=== PATIENT | male | born 1960 | race Caucasian/White ===

== ENCOUNTER 2018-07-11 10:27 | Inpatient (IN) | payer OTHER, BC ==
[~2018-07-11] VITALS: Ht 157.5 cm; Wt 100.7 kg
--- NOTE | 2018-07-11 10:27 | NUR ---
PATIENT BIBA TO BED 10.
[2018-07-11 10:30] VITALS: BP 129/73
--- NOTE | 2018-07-11 10:40 | NUR ---
Patient being evaluated by physician at bedside.
--- NOTE | 2018-07-11 11:01 | NUR ---
PATIENT BIBA WITH C/O DIZZINESS AND WEAKNESS AT [facility]IALYSIS CENTER, BRADYCARDIAC ON SCENE HR 30-40, PT IS AAOX4, DENIES ANY CP OR SOB, DENIES N/V/D. SKIN IS WARM AND DRY TO TOUCH, BLE EDEMA AND VENOUS ULCER NOTED, DENIES PAIN, BP WNL. NO FEVER, PT DID NOT RECEIVED DIALYSIS TODAY. HX OF STEMI, RENAL FAILURE (M. W.F), DM, STROKE. PATIENT POSITIONED FOR COMFORT; HOB ELEVATED; BEDRAILS UP X2; BED DOWN. ER MD MADE AWARE OF PT STATUS.
[2018-07-11 11:08] LABS: BASOPHILS # (AUTO) 0.1 K/uL (0.00-0.22); BASOPHILS % (AUTO) 1.2 % (0.0-2.0); EOSINOPHILS # (AUTO) 0.1 K/uL (0-0.4); EOSINOPHILS % (AUTO) 1.6 % (0.0-4.0); HEMATOCRIT 33.7 % (36-52); HEMOGLOBIN 10.7 g/dL (12.0-18.0); LYMPHOCYTES # (AUTO) 1.3 K/uL (2.0-11.5); LYMPHOCYTES % (AUTO) 18.6 % (20.5-51.1); MEAN CORPUSCULAR HEMOGLOBIN 31 pg (27-31); MEAN CORPUSCULAR HGB CONC 32 g/dL (33-37); MEAN CORPUSCULAR VOLUME 99.4 fL (80-94); MONOCYTES # (AUTO) 0.5 K/uL (0.8-1.0); MONOCYTES % (AUTO) 6.7 % (1.7-9.3); NEUTROPHILS # (AUTO) 5.2 K/uL (1.8-7.7); NEUTROPHILS % (AUTO) 71.9 % (42.2-75.2); PLATELET COUNT (AUTO) 201 K/uL (140-450); RED BLOOD CELL COUNT(AUTO) 3.39 MIL/uL (4.20-6.10); RED CELL DISTRIBUTION WIDTH 17.1 % (11.6-13.7); WHITE BLOOD COUNT (AUTO) 7.2 K/uL (4.8-10.8)
[2018-07-11 11:20] LABS: PROTHROMBIN TIME 10.2 secs (10.8-13.4)
[2018-07-11 11:22] LABS: ALBUMIN 3.7 g/dL (3.4-5.0); ANION GAP 17.1 (8-16); CARBON DIOXIDE 29.1 mmol/L (21-32); TOTAL BILIRUBIN 0.5 mg/dL (0.0-1.0)
[2018-07-11 11:23] LABS: POTASSIUM 6.2 mmol/L (3.5-5.1)
[2018-07-11 11:24] LABS: CREATININE 10.8 mg/dL (0.7-1.3)
--- NOTE | 2018-07-11 11:40 | NUR ---
CRITICAL LAB RESULT OBTAINED, DR. RUFFIN MADE AWARE.
--- NOTE | 2018-07-11 12:15 | NUR ---
Allegra jules in ED - 07/11/18 at [address] FAY PERFORMED I AND D AT BEDSIDE, PT TOLERTAED WELL.
[2018-07-11] MEDS ORDERED: HYDR100T79 PO (12:20)
[2018-07-11] MEDS ORDERED: DILT120C17 PO (12:20)
[2018-07-11] MEDS ORDERED: [UNRECOGNIZED DRUG - CODE] OP (12:20)
[2018-07-11] MEDS ORDERED: NACL 0.9% 3,000 ML IV ONE (12:20)
[2018-07-11] MEDS ORDERED: APIX2.5 PO (12:20)
[2018-07-11] MEDS ORDERED: ASPI81CT89 PO (12:20)
[2018-07-11] MEDS ORDERED: GABA300C PO (12:20)
[2018-07-11] MEDS ORDERED: INSULIN REGULAR, HUMAN 100 UNIT/ML VIAL IVP ONE (12:20)
[2018-07-11] MEDS ORDERED: SEVE800T6 PO (12:20)
[2018-07-11] MEDS ORDERED: DEXTROSE 50% 50 ML SYR IVP ONE (12:20)
[2018-07-11] MEDS ORDERED: CLON0.1T42 PO (12:20)
[2018-07-11] MEDS ORDERED: FURO-570 PO (12:20)
[2018-07-11] MEDS ORDERED: ATOR20TA PO (12:20)
[2018-07-11] MEDS ORDERED: CARV25TA PO (12:20)
[2018-07-11] MEDS ORDERED: NITR0.4T2 SL (12:20)
[2018-07-11] MEDS ORDERED: HUM SUBQ (12:23)
--- NOTE | 2018-07-11 12:43 | NUR ---
Note riccardoshai in EDM - 07/11/18 at 1246 by MICKEY Patient discharged with v/s stable. Written and verbal after care instructions given and explained. Patient alert, oriented and verbalized understanding of instructions. Ambulatory with steady gait. All questions addressed prior to discharge. ID band removed. Patient advised to follow up with PMD. Rx of MOTRIN, BACTRIM given. Patient educated on indication of medication including possible reaction and side effects. Opportunity to ask questions provided and answered.
[2018-07-11] MEDS ORDERED: DEXTROSE 50% 50 ML SYR IVP PRN (13:50)
[2018-07-11] MEDS ORDERED: MECLIZINE 25 MG TAB PO PRN ×2 (13:50)
[2018-07-11] MEDS ORDERED: ONDANSETRON 4 MG/2 ML VIAL IM/IVP PRN (13:50)
[2018-07-11] MEDS ORDERED: ACETAMINOPHEN 325 MG TAB PO PRN (13:50)
[2018-07-11 14:25] VITALS: BP 180/86
--- NOTE | 2018-07-11 14:25 | NUR ---
PATIENT ARRIVED FROM ER. ABLE TO AMBULATE FROM ER BED TO [facility] BED WITH STEADY GAIT. NO DISTRESS NOTED. DENIES ANY PAIN AT THIS TIME. AAOX4, CALM, COOPERATIVE, SKIN COLOR APPROPRIATE TO ETHNICITY, WARM TO TOUCH. HAS BLE CLOSED STASIS ULCERS. PICTURES TAKEN. RESPIRATIONS EVEN, UNLABORED, ON ROOM AIR. HAS LEFT FOREARM AV FISTULA NOTED, THRILL FELT, AND BREWING HEARD. IV SITE INTACT. PATENT, AND ON SALINE LOCK AT THIS TIME. ORIENTED PATIENT TO ROOM AND CALL LIGHT. SAFETY MEASURES IN PLACE, CALL LIGHT WITHIN REACH. WILL CONTINUE TO MONITOR.
--- NOTE | 2018-07-11 14:45 | NUR ---
Patient will be admitted to care of DR. MIRAMONTES. Admited to TELEMETRY. Will go to room 117. Belongings list completed. Report to SHAYY LAURENT AT BEDSIDE, PT IS IN STABLE CONDITION.
[2018-07-11] MEDS ORDERED: INSU100S22 SUBQ (15:11)
[2018-07-11 15:14] LABS: IRON, SERUM 66 ug/dl (35-150); LIPASE 233 U/L (73-393); MAGNESIUM 3.2 mg/dL (1.8-2.4); PHOSPHORUS 4.8 mg/dL (2.5-4.9); TOTAL IRON BINDING CAPACITY 242 ug/dl (250-450)
[2018-07-11] MEDS ORDERED: CALCIUM GLUCONATE 10% 1,000 MG in NACL 0.9% 50 ML IV SCH (15:30)
--- NOTE | 2018-07-11 15:31 | NUR ---
CALLED HEMODIALYSIS NURSE MS. AGUDELO REGARDING DR. SCHWARTZ'S HEMODIALYSIS STAT ORDER. MS. AGUDELO SAID A NURSE WILL COME HERE BY 17:30. WILL CONTINUE TO MONITOR.
[2018-07-11 15:46] LABS: THYROID STIMULATING HORMONE 1.87 uIU/mL (0.34-3.74)
[2018-07-11 16:00] VITALS: BP 177/105
[2018-07-11] MEDS ORDERED: SODIUM BICARBONATE IV ONE ×3 (16:00→21:00)
[2018-07-11] MEDS ORDERED: NACL 0.9% IV ONE ×3 (16:00→21:00)
[2018-07-11] MEDS: NACL 0.9% 1,000 ML IV SCH (16:29)
--- NOTE | 2018-07-11 16:47 | NUR ---
SCHEDULED MEDICATIONS DUE GIVEN. WILL CONTINUE TO MONITOR.
[2018-07-11] MEDS ORDERED: NEOMYCIN/POLYMYXIN/BACITRACIN OPTH OINT 3.5 GM TUBE OP SCH (17:00)
[2018-07-11] MEDS: hydrALAZINE 25 MG TAB PO SCH (17:00)
[2018-07-11] MEDS: INSULIN LISPRO SLIDING SCALE 100 UNITS/ML VIAL SUBQ PRN (17:12)
[2018-07-11] MEDS: BLOOD GLUCOSE MONITORING 1 DEV DEV FS SCH ×2 (17:14→20:47)
[2018-07-11] MEDS: SEVELAMER CARBONATE 800 MG TAB PO SCH (17:14)
--- NOTE | 2018-07-11 17:15 | NUR ---
PATIENT LYING IN BED WATCHING TV. AT BEDSIDE. NO DISTRESS NOTED. DENIES ANY PAIN. SCHEDULED MEDICATIONS DUE GIVEN. HYDRALAZINE NOT GIVEN DUE TO PATIENT HAVING HEMODIALYSIS TODAY. HD NURSE TO COME AROUND 1730 PER MS. AGUDELO. PATIENT ALSO STATES THAT BLOOD PRESSURE DROPS DOWN TO AROUND 130/70 AFTER RECEIVING HEMODIALYSIS. SAFETY MEASURES IN PLACE, CALL LIGHT WITHIN REACH. WILL CONTINUE TO MONITOR.
--- NOTE | 2018-07-11 17:30 | NUR ---
HD NURSE AT BEDSIDE STARTED HEMODIALYSIS AT THIS TIME. WILL CONTINUE TO MONITOR.
--- NOTE | 2018-07-11 19:20 | NUR ---
REPORT GIVEN TO SKILLS AUDITOR NURSE. PATIENT IN STABLE CONDITION.
--- NOTE | 2018-07-11 19:21 | NUR ---
REPORT RECEIVED FROM AM NURSE AT BEDSIDE. PT IN STABLE CONDITION. AAOX4. INTRODUCED SELF TO PT. BOARD UPDATED. NO COMPLAINTS OF PAIN. NO SOB. AFEBRILE. PT CURRENTLY RECEIVING HEMODIALYSIS. L AV FISTULA. IV SITE R AC 22G TKO PATENT AND INTACT. SKIN WARM, DRY, AND INTACT WITH NO OPEN WOUNDS. BED LOCKED IN LOW POSITION. CALL HALE WITHIN REACH. SAFETY PRECAUTIONS IN PLACE.
[2018-07-11 20:00] VITALS: BP 131/79
--- NOTE | 2018-07-11 21:00 | NUR ---
HEMODIALYSIS COMPLETE. 4L TAKEN OUT. BP 131/79.
[2018-07-11] MEDS: DOCUSATE SODIUM 100 MG GELCAP PO SCH (21:08)
[2018-07-11] MEDS: ATORVASTATIN 20 MG TAB PO SCH (21:08)
[2018-07-11] MEDS: APIXABAN 2.5 MG TAB PO SCH (21:08)
--- NOTE | 2018-07-11 21:08 | NUR ---
COLACE, ELIQUIS, AND LIPITOR GIVEN PO. SODIUM BICARB GIVEN IVPB. PT TOLERATING WELL. BS 142. NO INSULIN COVERAGE NEEDED.
--- NOTE | 2018-07-11 22:15 | NUR ---
ORTHOSTATIC BP DONE. SUPINE BP 131/79. 120/67 STANDING.
[2018-07-12] VITALS (8 sets, daily range): BP systolic 103–211; BP diastolic 54–101
--- NOTE | 2018-07-12 | NUR ---
PT SLEEPING COMFORTABLY. NO S/S OF DISTRESS NOTED. WILL CONTINUE TO MONITOR.
--- NOTE | 2018-07-12 02:30 | NUR ---
PT SLEEPING COMFORTABLY. NO S/S OF DISTRESS NOTED. NO COMPLAINTS OF PAIN. NO SOB. AFEBRILE. WILL CONTINUE TO MONITOR.
--- NOTE | 2018-07-12 04:10 | NUR ---
BP ELEVATED AT 179/71. NOTIFIED. NEW ORDER OF COREG PO ONCE.
--- NOTE | 2018-07-12 04:18 | NUR ---
COREG GIVEN PO FOR ELEVATED BP. PT TOLERATED WELL.
[2018-07-12] MEDS ORDERED: CARVEDILOL 12.5 MG TAB PO SCH (04:30)
[2018-07-12] MEDS: BLOOD GLUCOSE MONITORING 1 DEV DEV FS SCH ×4 (05:43→20:50)
--- NOTE | 2018-07-12 05:43 | NUR ---
BS 170. 2 UNITS OF HUMALOG GIVEN.
[2018-07-12] MEDS: INSULIN LISPRO SLIDING SCALE 100 UNITS/ML VIAL SUBQ PRN ×4 (05:44→20:51)
--- NOTE | 2018-07-12 07:15 | NUR ---
REPORT GIVEN TO AM NURSE AT BEDSIDE. PT IN STABLE CONDITION.
--- NOTE | 2018-07-12 07:57 | NUR ---
PATIENT IS AWAKE, ALERT, RESPIRATION EVEN AND UNLABOR ON ROOM AIR. DENIES PAIN AND DIZZINESS. SKIN IS WARM AND DRY. IV IS PATENT AND INTACT. LEFT FOREARM AV FISTULA NOTED. PLAN OF CARE WAS DISCUSS. CALL LIGHT WITHIN REACH.
[2018-07-12 08:14] LABS: FOLIC ACID 7.3 ng/mL (>3.0)
[2018-07-12 08:40] LABS: BASOPHILS # (AUTO) 0.1 K/uL (0.00-0.22); BASOPHILS % (AUTO) 0.9 % (0.0-2.0); EOSINOPHILS # (AUTO) 0.2 K/uL (0-0.4); EOSINOPHILS % (AUTO) 2.6 % (0.0-4.0); HEMATOCRIT 35.7 % (36-52); HEMOGLOBIN 11.4 g/dL (12.0-18.0); LYMPHOCYTES # (AUTO) 1.3 K/uL (2.0-11.5); LYMPHOCYTES % (AUTO) 20.3 % (20.5-51.1); MEAN CORPUSCULAR HEMOGLOBIN 32 pg (27-31); MEAN CORPUSCULAR HGB CONC 32 g/dL (33-37); MEAN CORPUSCULAR VOLUME 99.7 fL (80-94); MONOCYTES # (AUTO) 0.5 K/uL (0.8-1.0); MONOCYTES % (AUTO) 7.6 % (1.7-9.3); NEUTROPHILS # (AUTO) 4.6 K/uL (1.8-7.7); NEUTROPHILS % (AUTO) 68.6 % (42.2-75.2); PLATELET COUNT (AUTO) 206 K/uL (140-450); RED BLOOD CELL COUNT(AUTO) 3.58 MIL/uL (4.20-6.10); RED CELL DISTRIBUTION WIDTH 16.8 % (11.6-13.7); WHITE BLOOD COUNT (AUTO) 6.7 K/uL (4.8-10.8)
[2018-07-12] MEDS: ASPIRIN 81 MG TAB.CHEW PO SCH (08:57)
[2018-07-12] MEDS: hydrALAZINE 25 MG TAB PO SCH ×4 (08:58→21:00)
[2018-07-12] MEDS: SEVELAMER CARBONATE 800 MG TAB PO SCH ×3 (08:58→17:09)
[2018-07-12 09:00] LABS: ANION GAP 11.7 (8-16); CARBON DIOXIDE 35.8 mmol/L (21-32); POTASSIUM 4.5 mmol/L (3.5-5.1)
[2018-07-12] MEDS: DOCUSATE SODIUM 100 MG GELCAP PO SCH ×2 (09:00→20:46)
[2018-07-12] MEDS: APIXABAN 2.5 MG TAB PO SCH ×2 (09:00→20:46)
[2018-07-12] MEDS ORDERED: cloNIDine 0.1 MG TAB PO SCH (09:00)
[2018-07-12] MEDS: CARVEDILOL 12.5 MG TAB PO SCH ×2 (09:00→21:00)
[2018-07-12] MEDS: INSULIN LANTUS 100 UNITS/ML 10 ML VIAL SUBQ SCH (09:01)
[2018-07-12 09:02] LABS: CREATININE 8.6 mg/dL (0.7-1.3)
[2018-07-12 09:05] LABS: CHOL/HDL RATIO 4.2 (1-4.5); MAGNESIUM 2.7 mg/dL (1.8-2.4); PHOSPHORUS 4.5 mg/dL (2.5-4.9)
--- NOTE | 2018-07-12 10:20 | NUR ---
PATIENT WAS AWAKE, ALERT, SITTING IN THE CHAIR COMFORTABLY. RESPIRATION EVEN, UNLABOR ON ROOM AIR. BP WAS RECHECKED. PATIENT DENIED PADRON, SOB. NO DISTRESS NOTED AT THIS TIME. FAMILY AT BEDSIDE. CALL LIGHT WITHIN REACH
--- NOTE | 2018-07-12 11:00 | NUR ---
DR. DOWLING WAS MADE AWARE OF PATIENT'S ELEVATED BP, ADVISED TO CONTINUE TO MONITOR
[2018-07-12] MEDS ORDERED: cloNIDine 0.1 MG TAB PO PRN (11:10)
--- NOTE | 2018-07-12 12:50 | NUR ---
PATIENT WAS AWAKE, ALERT. RESPIRATION EVEN, UNLABOR ON ROOM AIR. IV PATENT AND INTACT. MEDS WERE GIVEN PER ORDER. NO DISTRESS NOTED AT THIS TIME
--- NOTE | 2018-07-12 12:55 | NUR ---
RECEIVED PATIENT FROM SHAYY GUTIÉRREZ. PATIENT IN STABLE CONDITION, A/Ox4, ABLE TO MAKE NEEDS KNOWN. INTRODUCED SELF AND SHAYY REYES TO PATIENT. NO COMPLAINTS OF PAIN. NO SOB. AFEBRILE. LEFT AV FISTULA. IV SITE R AC 22G TKO PATENT AND INTACT. SKIN WARM, DRY, AND INTACT WITH NO OPEN WOUNDS. CALL LIGHT WITHIN REACH. BED IN LOWEST POSITION. WILL CONTINUE TO MONITOR.
--- NOTE | 2018-07-12 13:42 | NUR ---
PATIENT HAS BEEN SCREENED AND CATEGORIZED HIGH NUTRITION RISK. PATIENT WILL BE SEEN WITHIN 1-2 DAYS OF ADMISSION. 07/12/18 07/13/18 KYRA ARANA MBA, RD
[2018-07-12] MEDS: NACL 0.9% 1,000 ML IV SCH (13:46)
--- NOTE | 2018-07-12 14:00 | NUR ---
ENDORSEMENT WAS GIVEN TO ERIC LUCAS FOR CONTINUITY OF CARE. PATIENT IS STABLE AT THIS TIME
[2018-07-12] MEDS ORDERED: NIFEdipine 60 MG TABER PO SCH (14:15)
--- NOTE | 2018-07-12 18:47 | NUR ---
07/12/18 RD INITIAL ASSESSMENT COMPLETED PLEASE REFER TO NUTRITION ASSESSMENT UNDER CARE ACTIVITY FOR ESTIMATED NUTRITIONAL NEEDS. RD RECOMMENDATIONS: 1. RECOMMEND CONTINUE CURRENT DIET 60G CCHO RENAL; SUFFICIENT TO MEET>75% OF DAILY ESTIMATED NUTRITIONAL NEEDS. 2. EDUCATE PT ON DIET 3. F/U 3-5 DAYS; MODERATE RISK KYRA ARANA MBA, RD
--- NOTE | 2018-07-12 18:58 | NUR ---
RECHECKED BP. PT HAS NO S/S OF DISTRESS. TALKING TO HIS COUSIN.
--- NOTE | 2018-07-12 19:20 | NUR ---
REPORT GIVEN TO SCIENTIST/ENGINEER RNSILVINA. PT IN STABLE CONDITION.
--- NOTE | 2018-07-12 19:21 | NUR ---
REPORT RECEIVED FROM AM NURSE AT BEDSIDE. PT IN STABLE CONDITION. AAOX4. INTRODUCED SELF TO PT. BOARD UPDATED. NO COMPLAINTS OF PAIN. NO SOB. AFEBRILE. IV SITE R AC 22G TKO PATENT AND INTACT. PT HAS A L AV FISTULA. SKIN WARM, DRY, AND INTACT WITH NO OPEN WOUNDS. BED LOCKED IN LOW POSITION. CALL HALE WITHIN REACH. SAFETY PRECAUTIONS IN PLACE.
[2018-07-12] MEDS: ATORVASTATIN 20 MG TAB PO SCH (20:46)
--- NOTE | 2018-07-12 20:46 | NUR ---
ELIQUIS, LIPITOR, AND COLACE GIVEN PO. PT TOLERATED WELL. BS 309. 8 UNITS OF HUMALOG GIVEN. NIFEDIPINE, HYDRALAZINE, AND COREG HELD DUE TO DECREASED BP OF 103/54 AND HR OF 60. MD NOTIFIED AND AGREES WITH HOLDING BP MEDICATION. MD ORDER TO MONITOR BP THROUGHOUT THE NIGHT.
[2018-07-12] MEDS: NIFEdipine 60 MG TABER PO SCH (21:00)
--- NOTE | 2018-07-12 22:20 | NUR ---
PT SLEEPING COMFORTABLY IN BED. NO S/S OF DISTRESS NOTED. WILL CONTINUE TO MONITOR.
[2018-07-13] VITALS: BP 106/60
--- NOTE | 2018-07-13 00:45 | NUR ---
PT SLEEPING COMFORTABLY IN BED. VS STABLE. BP STABILIZING. NO S/S OF DISTRESS NOTED.
--- NOTE | 2018-07-13 03:30 | NUR ---
PT AWAKE AND ALERT WATCHING TV SITTING ON HIS CHAIR. NO S/S OF DISTRESS NOTED. WILL CONTINUE TO MONITOR.
[2018-07-13 04:00] VITALS: BP 132/68
--- NOTE | 2018-07-13 05:15 | NUR ---
PT SLEEPING COMFORTABLY IN BED. NO S/S OF DISTRESS NOTED. NO COMPLAINTS OF PAIN. NO SOB. AFEBRILE. RESPIRATIONS ADAM, UNLABORED, AND WNL. WILL CONTINUE TO MONITOR.
[2018-07-13] MEDS: BLOOD GLUCOSE MONITORING 1 DEV DEV FS SCH ×4 (05:52→20:32)
--- NOTE | 2018-07-13 05:52 | NUR ---
BS 146. NO INSULIN COVERAGE NEEDED.
--- NOTE | 2018-07-13 07:10 | NUR ---
REPORT GIVEN TO AM NURSE AT BEDSIDE. PT IN STABLE CONDITION.
[2018-07-13 07:32] LABS: BASOPHILS # (AUTO) 0.1 K/uL (0.00-0.22); BASOPHILS % (AUTO) 0.8 % (0.0-2.0); EOSINOPHILS # (AUTO) 0.2 K/uL (0-0.4); EOSINOPHILS % (AUTO) 3.3 % (0.0-4.0); HEMATOCRIT 32.2 % (36-52); HEMOGLOBIN 10.5 g/dL (12.0-18.0); LYMPHOCYTES # (AUTO) 1.3 K/uL (2.0-11.5); MEAN CORPUSCULAR HEMOGLOBIN 32 pg (27-31); MEAN CORPUSCULAR HGB CONC 33 g/dL (33-37); MEAN CORPUSCULAR VOLUME 97.7 fL (80-94); MONOCYTES # (AUTO) 0.6 K/uL (0.8-1.0); MONOCYTES % (AUTO) 8.7 % (1.7-9.3); NEUTROPHILS # (AUTO) 4.5 K/uL (1.8-7.7); NEUTROPHILS % (AUTO) 67.2 % (42.2-75.2); PLATELET COUNT (AUTO) 186 K/uL (140-450); RED BLOOD CELL COUNT(AUTO) 3.29 MIL/uL (4.20-6.10); RED CELL DISTRIBUTION WIDTH 16.9 % (11.6-13.7); WHITE BLOOD COUNT (AUTO) 6.6 K/uL (4.8-10.8)
[2018-07-13 07:33] LABS: ANION GAP 14.5 (8-16); POTASSIUM 4.5 mmol/L (3.5-5.1)
[2018-07-13 07:41] LABS: MAGNESIUM 2.6 mg/dL (1.8-2.4); PHOSPHORUS 5.5 mg/dL (2.5-4.9)
--- NOTE | 2018-07-13 07:50 | NUR ---
PATIENT IS AWAKE, ALERT, RESPIRATION EVEN AND UNLABOR ON ROOM AIR. DENIES DISCOMFORT AND PAIN. SKIN IS WARM AND DRY. IV IS PATENT AND INTACT. AV FISTULA TO THE LEFT NOTED. PLAN OF CARE WAS DISCUSS. BED IS IN LOW POSITION. CALL LIGHT WITHIN REACH
[2018-07-13 08:00] VITALS: BP 140/67
[2018-07-13 08:15] LABS: CREATININE 10.2 mg/dL (0.7-1.3)
[2018-07-13] MEDS: CARVEDILOL 12.5 MG TAB PO SCH ×3 (09:00→20:39)
[2018-07-13] MEDS ORDERED: GABAPENTIN 300 MG CAP PO SCH (09:00)
[2018-07-13] MEDS: DOCUSATE SODIUM 100 MG GELCAP PO SCH ×2 (09:00→20:35)
[2018-07-13] MEDS: SEVELAMER CARBONATE 800 MG TAB PO SCH ×3 (09:51→17:51)
[2018-07-13] MEDS: ASPIRIN 81 MG TAB.CHEW PO SCH (09:51)
[2018-07-13] MEDS: NIFEdipine 60 MG TABER PO SCH ×2 (09:53→20:35)
[2018-07-13] MEDS: hydrALAZINE 25 MG TAB PO SCH ×4 (09:53→20:39)
[2018-07-13] MEDS: APIXABAN 2.5 MG TAB PO SCH ×2 (09:58→20:36)
[2018-07-13] MEDS: INSULIN LANTUS 100 UNITS/ML 10 ML VIAL SUBQ SCH (09:58)
--- NOTE | 2018-07-13 10:00 | NUR ---
PATIENT IS SITTING DOWN WATCHING TV. RESPIRATION EVEN AND UNLABOR ON ROOM AIR. NO DISTRESS NOTED AT THIS TIME.
[2018-07-13 12:00] VITALS: BP 123/63
--- NOTE | 2018-07-13 12:00 | NUR ---
PATIENT IS AWAKE, ALERT, RESPIRATION EVEN AND UNLABOR ON ROOM AIR. FAMILY AT THE BEDSIDE. NO DISTRESS NOTED AT THIS TIME
[2018-07-13] MEDS: INSULIN LISPRO SLIDING SCALE 100 UNITS/ML VIAL SUBQ PRN ×3 (12:56→20:37)
[2018-07-13] MEDS: NACL 0.9% 1,000 ML IV SCH (13:46)
--- NOTE | 2018-07-13 14:00 | NUR ---
PATIENT AMBULATED AROUND THE HALLWAY WITH , STEADY GAIT. NO DISTRESS NOTED DURING AMBULATION.
[2018-07-13 16:00] VITALS: BP 117/59
--- NOTE | 2018-07-13 16:00 | NUR ---
PATIENT WAS AWAKE, ALERT, SITTING IN CHAIR COMFORTABLY. RESPIRATION EVEN, UNLABOR ON ROOM AIR. NO DISTRESS NOTED AT THIS TIME
--- NOTE | 2018-07-13 17:50 | NUR ---
PATIENT WAS AWAKE, EATING DINNER COMFORTABLY. RESPIRATION EVEN, UNLABOR ON ROOM AIR. IV PATENT AND INTACT. MEDS WERE GIVEN PER ORDER. CALL LIGHT WITHIN REACH. FAMILY AT BEDSIDE
--- NOTE | 2018-07-13 19:27 | NUR ---
ENDORSED REPORT TO NIGHT NURSE FOR CONTINUITY OF CARE. PATIENT IS STABLE AT THIS TIME.
--- NOTE | 2018-07-13 19:28 | NUR ---
REPORT RECEIVED FROM AM NURSE AT BEDSIDE. PT IN STABLE CONDITION. AAOX4. INTRODUCED SELF TO PT. BOARD UPDATED. NO COMPLAINTS OF PAIN. NO SOB. AFEBRILE. IV SITE R AC 22G RUNNING NS@10ML/HR TKO PATENT AND INTACT. SKIN WARM, DRY, AND INTACT WITH NO OPEN WOUNDS. BED LOCKED IN LOW POSITION. CALL HALE WITHIN REACH. SAFETY PRECAUTIONS IN PLACE.
[2018-07-13 20:00] VITALS: BP 129/68
--- NOTE | 2018-07-13 20:35 | NUR ---
COLACE, ELIQUIS, LIPITOR, AND NIFEDIPINE GIVEN PO. PT TOLERATED WELL. APRESOLINE AND COREG HELD DUE TO DECREASED BP AND MULTIPLE BP MEDICATIONS. DR. BRAVO NOTIFIED AND AGREES TO HOLD BOTH BP MEDICATIONS. BS 262. 6 UNITS OF HUMALOG GIVEN.
[2018-07-13] MEDS: ATORVASTATIN 20 MG TAB PO SCH (20:36)
--- NOTE | 2018-07-13 22:30 | NUR ---
PT SLEEPING COMFORTABLY IN BED SUPINE. NO S/S OF DISTRESS NOTED. RESPIRATIONS EVEN, UNLABORED, AND WNL. WILL CONTINUE TO MONITOR.
[2018-07-14] VITALS: BP 133/70
--- NOTE | 2018-07-14 | NUR ---
PT AWAKE AND ALERT WATCHING TV. VS STABLE. BP NORMAL. NO S/S OF DISTRESS NOTED. WILL CONTINUE TO MONITOR.
--- NOTE | 2018-07-14 02:00 | NUR ---
PT SLEEPING COMFORTABLY IN BED BUT AROUSABLE. NO S/S OF DISTRESS NOTED. NO COMPLAINTS OF PAIN. NO SOB. AFEBRILE. WILL CONTINUE TO MONITOR.
[2018-07-14 04:00] VITALS: BP 113/59
--- NOTE | 2018-07-14 04:15 | NUR ---
PT SLEEPING IN HIS CHAIR. NO S/S OF DISTRESS NOTED. NO COMPLAINTS OF PAIN. NO SOB. AFEBRILE. RESPIRATIONS EVEN, UNLABORED, AND WNL. WILL CONTINUE TO MONITOR.
[2018-07-14] MEDS: BLOOD GLUCOSE MONITORING 1 DEV DEV FS SCH ×3 (05:35→17:01)
--- NOTE | 2018-07-14 05:35 | NUR ---
BS 115. NO INSULIN COVERAGE NEEDED.
[2018-07-14 06:35] LABS: BASOPHILS # (AUTO) 0.1 K/uL (0.00-0.22); BASOPHILS % (AUTO) 1.2 % (0.0-2.0); EOSINOPHILS # (AUTO) 0.2 K/uL (0-0.4); EOSINOPHILS % (AUTO) 3.3 % (0.0-4.0); HEMATOCRIT 33.3 % (36-52); HEMOGLOBIN 10.7 g/dL (12.0-18.0); LYMPHOCYTES # (AUTO) 1.4 K/uL (2.0-11.5); LYMPHOCYTES % (AUTO) 22.8 % (20.5-51.1); MEAN CORPUSCULAR HEMOGLOBIN 32 pg (27-31); MEAN CORPUSCULAR HGB CONC 32 g/dL (33-37); MEAN CORPUSCULAR VOLUME 98.2 fL (80-94); MONOCYTES # (AUTO) 0.5 K/uL (0.8-1.0); MONOCYTES % (AUTO) 8.1 % (1.7-9.3); NEUTROPHILS % (AUTO) 64.6 % (42.2-75.2); PLATELET COUNT (AUTO) 190 K/uL (140-450); RED BLOOD CELL COUNT(AUTO) 3.39 MIL/uL (4.20-6.10); RED CELL DISTRIBUTION WIDTH 16.9 % (11.6-13.7); WHITE BLOOD COUNT (AUTO) 6.1 K/uL (4.8-10.8)
[2018-07-14 06:59] LABS: ANION GAP 19.3 (8-16); CARBON DIOXIDE 27.4 mmol/L (21-32); POTASSIUM 4.7 mmol/L (3.5-5.1)
[2018-07-14 07:03] LABS: MAGNESIUM 2.7 mg/dL (1.8-2.4)
--- NOTE | 2018-07-14 07:22 | NUR ---
REPORT GIVEN TO AM NURSE AT BEDSIDE. PT IN STABLE CONDITION.
--- NOTE | 2018-07-14 07:23 | NUR ---
RECEIVED BEDSIDE REPORT FROM SCREEN PRINTER HELPER NURSE. PATIENT AAOX4. PATIENT ON ROOM AIR, NO DISTRESS NOTED. PATIENT AMBULATORY AND CONTINENT. SKIN INTACT. IV ON R AC 22 G TKO. IV CLEAN DRY AND INTACT. L AV FISTULA, NO BP/VENIPUNCTURE SIGN POSTED AT [facility]. BED IN LOW POSITION, CALL LIGHT WITHIN REACH. WILL CONTINUE TO MONITOR.
[2018-07-14 07:31] LABS: CREATININE 12.3 mg/dL (0.7-1.3)
[2018-07-14 08:00] VITALS: BP 139/71
[2018-07-14] MEDS: CARVEDILOL 12.5 MG TAB PO SCH ×2 (08:00→17:03)
[2018-07-14] MEDS: hydrALAZINE 25 MG TAB PO SCH ×3 (09:00→17:03)
[2018-07-14] MEDS ORDERED: ATORVASTATIN 20 MG TAB PO SCH (09:00)
[2018-07-14] MEDS: APIXABAN 2.5 MG TAB PO SCH (09:00)
[2018-07-14] MEDS: NIFEdipine 60 MG TABER PO SCH (09:00)
[2018-07-14] MEDS: DOCUSATE SODIUM 100 MG GELCAP PO SCH (10:06)
[2018-07-14] MEDS: ASPIRIN 81 MG TAB.CHEW PO SCH (10:07)
[2018-07-14] MEDS: SEVELAMER CARBONATE 800 MG TAB PO SCH ×3 (10:09→17:03)
[2018-07-14] MEDS: INSULIN LANTUS 100 UNITS/ML 10 ML VIAL SUBQ SCH (10:21)
[2018-07-14] MEDS ORDERED: ADA60 PO (11:22)
[2018-07-14] MEDS ORDERED: HYDR-4420 PO (11:22)
[2018-07-14] MEDS ORDERED: CARV12.52 PO (11:22)
[2018-07-14 12:00] VITALS: BP 147/70
[2018-07-14] MEDS: NACL 0.9% 1,000 ML IV SCH (13:46)
--- NOTE | 2018-07-14 15:25 | NUR ---
HEMODIALYSIS COMPLETE. PATIENT TOLERATED WELL, NO SIGNS OF DISTRESS. DIALYSIS NURSE STATED 3.5 L OUT AND L ARM DRESSING IN PLACE. WILL CONTINUE TO MONITOR PATIENT.
[2018-07-14 16:00] VITALS: BP 161/82
--- NOTE | 2018-07-14 16:00 | NUR ---
PATIENT SITTING ON CHAIR WITH FAMILY AT BEDSIDE. PATIENT ON ROOM AIR, WITH NO SIGNS OF DISTRESS. WILL CONTINUE TO MONITOR.
[2018-07-14] MEDS: INSULIN LISPRO SLIDING SCALE 100 UNITS/ML VIAL SUBQ PRN (17:04)
--- NOTE | 2018-07-14 18:00 | NUR ---
EDUCATED PATIENT ON DISCHARGE INSTRUCTIONS. PATIENT EDUCATED ON MEDICATIONS AND SIDE EFFECTS. EDUCATED PATIENT TO FOLLOW UP WITH PCP AND PROVIDED SCHEDULED APPOINTMENT DATE. EDUCATED PATIENT TO RETURN TO ER WHEN SYMPTOMS WORSEN OR NEW SYMPTOMS ARISE. PATIENT VERBALIZED UNDERSTANDING. REMOVED IV, IV TIP INTACT. REMOVED WRIST BANDS. PATIENT DISCHARGED IN STABLE CONDITION.
== END 2018-07-14 18:00 | disposition home or self-care (01) | DRG 682 ==
LOC: MED 10:27 → MTU 13:46
PROVIDERS: ADMIT General Practice; ATTEND General Practice
PROC: 5A1D70Z Performance of Urinary Filtration, Intermittent, Less than 6 Hours Per Day (ICD-10-PCS; principal; 2018-07-11)
PROC: 5A1D70Z Performance of Urinary Filtration, Intermittent, Less than 6 Hours Per Day (ICD-10-PCS; 2018-07-14)
DX: N17.0 Acute kidney failure with tubular necrosis (principal); I50.43 Acute on chronic combined systolic (congestive) and diastolic (congestive) heart failure; E43 Unspecified severe protein-calorie malnutrition; E87.2 Acidosis; E87.1 Hypo-osmolality and hyponatremia; Z68.41 Body mass index [BMI] 40.0-44.9, adult; D68.59 Other primary thrombophilia; I13.11 Hypertensive heart and chronic kidney disease without heart failure, with stage 5 chronic kidney disease, or end stage renal disease; E72.20 Disorder of urea cycle metabolism, unspecified; N18.6 End stage renal disease; G90.8 Other disorders of autonomic nervous system; E87.5 Hyperkalemia; E11.65 Type 2 diabetes mellitus with hyperglycemia; Z86.73 Personal history of transient ischemic attack (TIA), and cerebral infarction without residual deficits; E11.21 Type 2 diabetes mellitus with diabetic nephropathy; E11.22 Type 2 diabetes mellitus with diabetic chronic kidney disease; E11.40 Type 2 diabetes mellitus with diabetic neuropathy, unspecified; E78.5 Hyperlipidemia, unspecified; Z99.2 Dependence on renal dialysis; I25.10 Atherosclerotic heart disease of native coronary artery without angina pectoris; D64.9 Anemia, unspecified; E83.41 Hypermagnesemia; E11.51 Type 2 diabetes mellitus with diabetic peripheral angiopathy without gangrene; E66.01 Morbid (severe) obesity due to excess calories; H26.9 Unspecified cataract; E87.8 Other disorders of electrolyte and fluid balance, not elsewhere classified; D63.1 Anemia in chronic kidney disease; I48.91 Unspecified atrial fibrillation; I87.8 Other specified disorders of veins; R00.1 Bradycardia, unspecified; I70.203 Unspecified atherosclerosis of native arteries of extremities, bilateral legs; I16.0 Hypertensive urgency; F43.9 Reaction to severe stress, unspecified; E83.51 Hypocalcemia; T50.905A Adverse effect of unspecified drugs, medicaments and biological substances, initial encounter; Y92.89 Other specified places as the place of occurrence of the external cause
CPT/HCPCS: 36415; 71045; 80048; 80053; 82140; 82607; 82728; 82746; 82948; 83036; 83540; 83605; 83690; 83735; 83880; 84100; 84443; 84484; 85025; 85045; 85610; 85730; 87040; 87081; 87804; 93005; 93880; 93925; 93970; 96361; 96374; 97116; 99285; G0482; J0610; J1815; J3490; J7030; Q0092